=== PATIENT | female | born 1980 | race Caucasian/White ===

== ENCOUNTER 2020-04-03 12:57 | Outpatient (REF) | payer OTHER, SELFPAY | END 2020-04-03 12:58 | disposition home or self-care (01) | LOC: HO.LAB 12:57 | PROVIDERS: Visit Provider Internal Medicine | DX: Z20.828 Contact with and (suspected) exposure to other viral communicable diseases (principal) | CPT/HCPCS: C9803; U0003 ==

== ENCOUNTER 2020-04-27 11:09 | Outpatient (REF) | payer OTHER, SELFPAY | END 2020-04-27 11:10 | disposition home or self-care (01) | LOC: HO.LAB 11:09 | PROVIDERS: Visit Provider Internal Medicine | DX: Z20.828 Contact with and (suspected) exposure to other viral communicable diseases (principal) | CPT/HCPCS: C9803; U0003 ==

== ENCOUNTER 2020-12-03 14:35 | Outpatient (REF) | payer MEDICAID, SELFPAY | END 2020-12-03 14:36 | disposition home or self-care (01) | LOC: HO.LAB 14:35 | PROVIDERS: Visit Provider Internal Medicine | DX: Z20.822 Contact with and (suspected) exposure to COVID-19 (principal) | CPT/HCPCS: C9803; U0003; U0005 ==